=== PATIENT | male | born 1935 | race Caucasian/White ===

== ENCOUNTER 2017-10-22 19:29 | Emergency (ER) | payer MEDICARE, OTHER ==
[~2017-10-22] VITALS: Ht 180.3 cm; Wt 86.2 kg
[2017-10-22 19:30] VITALS: BP 132/82
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
--- NOTE | 2017-10-22 19:51 | NUR ---
DR MOJICA AT BEDSIDE TO EVALUATE PATIENT.
== END 2017-10-22 22:21 | disposition home or self-care (01) ==
LOC: ER 19:30
DX: M25.512 Pain in left shoulder (principal); M25.552 Pain in left hip; M79.652 Pain in left thigh; M54.5 Low back pain; R51 Headache; E11.9 Type 2 diabetes mellitus without complications; I10 Essential (primary) hypertension; K40.20 Bilateral inguinal hernia, without obstruction or gangrene, not specified as recurrent; M48.02 Spinal stenosis, cervical region; M88.9 Osteitis deformans of unspecified bone
CPT/HCPCS: 70450; 71045; 72125; 72192; 73030; 73552; 99284; A4606; Z7610